=== PATIENT | female | born 1975 | race African-American/Black ===

== ENCOUNTER 2017-07-28 19:37 | Emergency (ER) | payer SELFPAY ==
[2017-07-28 19:43] VITALS: BP 128/71; BMI 33.7
[2017-07-28 21:06] LABS: BLOOD UREA NITROGEN 12 mg/dL (7-18); CALCIUM 9.4 mg/dL (8.5-10.1); CARBON DIOXIDE 27.8 mmol/L (21-32); CHLORIDE 100 mmol/L (98-107); CREATININE 1.01 mg/dL (0.55-1.02); SODIUM 136 mmol/L (136-145); TROPONIN I < 0.02 ng/mL (0-1.5); eGFR BLACK RACES > 60 (>60); eGFR NON BLACK RACES > 60 (>60)
[2017-07-28 21:10] LABS: ALANINE AMINOTRANSFERASE 15 Units/L (12-78); ALBUMIN 3.5 g/dL (3.4-5.0); ALKALINE PHOSPHATASE 46 Units/L (46-116); ASPARTATE AMINO TRANSFERASE 23 Units/L (15-37); CREATINE KINASE 102 Units/L (26-192); CREATINE KINASE MB < 1.0 ng/mL (0-4.0); MAGNESIUM 1.9 mg/dL (1.7-2.9); PHOSPHORUS 3.2 mg/dL (2.6-4.7); TOTAL PROTEIN 8.2 g/dL (6.4-8.2)
[2017-07-28 21:16] LABS: BASOPHILS % (AUTO) 0.3 % (0.2-1.0); EOSINOPHILS % (AUTO) 0.1 % (0.9-2.9); LYMPHOCYTES # (AUTO) 1.4 X10^3/uL (1.3-2.9); LYMPHOCYTES % (AUTO) 16.2 % (21.0-51.0); MEAN CORPUSCULAR HEMOGLOBIN 27.5 pg (27.0-34.0); MEAN CORPUSCULAR HGB CONC 33.2 g/dL (33.0-35.0); MEAN CORPUSCULAR VOLUME 82.7 fL (80.0-100.0); MEAN PLATELET VOLUME 9.3 fL (7.4-11.0); MONOCYTES # (AUTO) 0.6 x10^3/uL (0.3-0.8); MONOCYTES % (AUTO) 6.8 % (0.0-13.0); NEUTROPHILS # (AUTO) 6.6 x10^3/uL (2.2-4.8); NEUTROPHILS % (AUTO) 76.6 % (42.0-75.0); PLATELET COUNT 113 X10^3/uL (150.0-450.0); RED BLOOD COUNT 4.72 X10^6/uL (3.5-5.4); RED CELL DISTRIBUTION WIDTH 15.4 % (11.6-16.5)
[2017-07-28 21:34] LABS: HYPOCHROMASIA SLIGHT; PLATELET MORPHOLOGY COMMENT NORMAL (NORMAL)
[2017-07-28 21:35] LABS: WHITE BLOOD COUNT 8.6 X10^3/uL (3.6-10.0)
--- NOTE | 2017-07-28 21:47 | RAD ---
HISTORY: Chest pain. Study: Portable chest. Comparison: None. Findings: The trachea is midline. The cardiac silhouette is unremarkable. The lungs are clear without focal i nfiltrate or effusion. The bony thorax is unremarkable. IMPRESSION: No acute cardiopulmonary disease. Reported By:
--- NOTE | 2017-07-28 22:12 | DR.GENAD ---
HPI - Complaint/Symptoms Chief Complaint Doctors Comments: Patient denies history of cardiac or pulmonary disease Chief Complaint:: PT STATES HER CHEST AND STOMACH BEGAN HURTING LAST NIGHT. Self Treatment fo Chief Complaint: PT STATES SHE TOOK SOME HEARTBURN MEDS THAT HAVE NOT HELPED - Source History Provided: Patient - Mode of Arrival Mode of Arrival: Ambulatory - Timing Onset of Chief Complaint: 07/27/17 PMH - PMH Past Medical History: No Past Surgical History: Yes Surgical History: Cholecystectomy, SAP GATHERER Surgery - Family History History of Family Medical Conditions: Yes Family Medical History: Diabetes Mellitus, Cancer, Coronary Artery Disease, Hypertension - infectious screening Have you traveled outside the country in the last 6 months?: No ROS - Review of Systems Constitutional: No Symptoms Reported Eyes: No Symptoms Reported ENTM: No Symptoms Reported Respiratoy: No Symptoms Reported Cardiovascular: Other (chest wall pain) Gastrointestinal/Abdominal: No Symptoms Reported, See HPI Genitourinary: No Symptoms Reported Neurological: No Symptoms Reported Musculoskeletal: No Symptoms Reported, See HPI Integumentary: No Symptoms Reported Hematologic/Lymphatic: No Symptoms Reported Endocrine: No Symptoms Reported, See HPI Psychiatric: No Symptoms Reported, Anxiety All Other Systems: Reviewed and Negative PE - Vital Signs Vitals: Temperature 99.8 F Pulse Rate 109 Respiratory Rate 18 Blood Pressure 128/71 O2 Sat by Pulse Oximetry 100 - General Limitations: No Limitations General Appearance: Alert, In No Apparent Distress - Head Head Exam: Normal Inspection, Atraumatic - Eyes Eye exam: Normal Appearance, PERRL, EOMI - ENT ENT Exam: Normal Exam External Ear Exam: Normal External Inspection TM/Canal Exam: Bilateral Normal Nose Exam: Normal Nose Exam Mouth Exam: Normal Inspection Throat Exam: Normal Inspection - Neck Neck Exam: Normal Inspection, Full ROM - Chest Chest Inspection: Normal Inspection, Tenderness (generalized to palpation) - Respiratory Respiratory Exam: Normal Lung Sounds Bilat Respiratory Exam: Bilateral Clear to Auscultation - Cardiovascular Cardiovascular Exam: Regular Rate, Normal Rhythm - Abdominal Exam Abdominal Exam: Normal Inspection, Normal Bowel Sounds Abdominal Tenderness: negative: RUQ, RLQ, LUQ, LLQ, Epigastrium, Suprapubic, Diffuse, Mild, Moderate, Severe, Other - Extremities Extremities Exam: Normal Inspection, Full ROM - Back Back Exam: Normal Inspection, Full ROM - Neurologic Neurological Exam: Alert, Oriented X3, CN II-XII Intact - Psychiatric Psychiatric Exam: Normal Affect, Normal Mood - Skin Skin Exam: Warm (psoriatic), Dry ROR - Labs Reviewed Result Diagrams: 07/28/17 20:35 07/28/17 20:35 Laboratory: WBC 8.6 X10^3/uL (3.6-10.0) 07/28/17 20:35 RBC 4.72 X10^6/uL (3.5-5.4) 07/28/17 20:35 Hgb 13.0 g/dL (12.0-16.0) 07/28/17 20:35 Hct 39.0 % (36.0-47.0) 07/28/17 20:35 MCV 82.7 fL (80.0-100.0) 07/28/17 20:35 MCH 27.5 pg (27.0-34.0) 07/28/17 20:35 MCHC 33.2 g/dL (33.0-35.0) 07/28/17 20:35 RDW 15.4 % (11.6-16.5) 07/28/17 20:35 Plt Count 113 X10^3/uL (150.0-450.0) L 07/28/17 20:35 Plt Count Comment Decreased (ADEQUATE) A 07/28/17 20:35 MPV 9.3 fL (7.4-11.0) 07/28/17 20:35 Neut % 76.6 % (42.0-75.0) H 07/28/17 20:35 Lymph % 16.2 % (21.0-51.0) L 07/28/17 20:35 [place] % 6.8 % (0.0-13.0) 07/28/17 20:35 Eos % 0.1 % (0.9-2.9) L 07/28/17 20:35 Baso % 0.3 % (0.2-1.0) 07/28/17 20:35 Neut # 6.6 x10^3/uL (2.2-4.8) H 07/28/17 20:35 Lymph # 1.4 X10^3/uL (1.3-2.9) 07/28/17 20:35 [place] # 0.6 x10^3/uL (0.3-0.8) 07/28/17 20:35 Eos # 0.0 x10^3/uL (0.0-0.2) 07/28/17 20:35 Baso # 0.0 X10^3/uL (0.0-0.1) 07/28/17 20:35 Absolute Nucleated RBC 0.1 /100WBC 07/28/17 20:35 Plt Clumps, EDTA Few 07/28/17 20:35 Plt Morphology Comment Normal (NORMAL) 07/28/17 20:35 RBC Morphology Abnormal (NORMAL) A 07/28/17 20:35 Hypochromasia Slight A 07/28/17 20:35 INR Target Range - 07/28/17 20:35 INR 1.07 (0.8-1.3) 07/28/17 20:35 PTT 31.5 SECONDS (22.9-36.5) 07/28/17 20:35 PTT Comment - 07/28/17 20:35 Sodium 136 mmol/L (136-145) 07/28/17 20:35 Corrected Sodium TNP 07/28/17 20:35 Potassium 3.6 mmol/L (3.5-5.1) 07/28/17 20:35 Chloride 100 mmol/L (98-107) 07/28/17 20:35 Carbon Dioxide 27.8 mmol/L (21-32) 07/28/17 20:35 BUN 12 mg/dL (7-18) 07/28/17 20:35 Creatinine 1.01 mg/dL (0.55-1.02) 07/28/17 20:35 Est GFR (MDRD) Af Amer > 60 (>60) 07/28/17 20:35 Est GFR (MDRD) Non-Af > 60 (>60) 07/28/17 20:35 Glucose 87 mg/dL (65-99) 07/28/17 20:35 Calcium 9.4 mg/dL (8.5-10.1) 07/28/17 20:35 Corrected Calcium TNP 07/28/17 20:35 Phosphorus 3.2 mg/dL (2.6-4.7) 07/28/17 20:35 Magnesium 1.9 mg/dL (1.7-2.9) 07/28/17 20:35 Total Bilirubin 1.40 mg/dL (0.2-1.0) H 07/28/17 20:35 AST 23 Units/L (15-37) 07/28/17 20:35 ALT 15 Units/L (12-78) 07/28/17 20:35 Alkaline Phosphatase 46 Units/L (46-116) 07/28/17 20:35 Creatine Kinase 102 Units/L (26-192) 07/28/17 20:35 CK-MB (CK-2) < 1.0 ng/mL (0-4.0) 07/28/17 20:35 CK/CKMB % Calc 1.0 % (<4) 07/28/17 20:35 Troponin I < 0.02 ng/mL (0-1.5) 07/28/17 20:35 Total Protein 8.2 g/dL (6.4-8.2) 07/28/17 20:35 Albumin 3.5 g/dL (3.4-5.0) 07/28/17 20:35 Globulin 4.7 g/dL (2.5-4.5) H 07/28/17 20:35 Albumin/Globulin Ratio 0.7 Ratio (1.1-2.1) L 07/28/17 20:35 - XRAY XRAY Interpreted by: Radiologist (chest: No acute cardiopulmonary disease) - Diagnosis Discharge Problem: Costochondritis, Psoriasis - Discharge Plan Condition: Stable - Follow ups/Referrals Follow ups/Referrals: KSENIA BOLANOS [Primary Care Provider] - 3 days - Instructions
[2017-07-29] MEDS ORDERED: BENTYL CAP 10 MG PO ONE (22:11)
== END 2017-07-28 22:36 | disposition home or self-care (01) ==
LOC: ER 19:53
DX: M94.0 Chondrocostal junction syndrome [Tietze] (principal); L40.8 Other psoriasis
CPT/HCPCS: 36415; 71010; 80053; 82550; 82553; 83735; 84100; 84484; 85025; 85610; 85730; 93005; 93010; 99283; A4222

== ENCOUNTER 2021-09-05 12:42 | Observation (INO) ==
--- NOTE | 2021-09-05 13:42 | ED.ABDFE ---
HPI Time Seen Time Seen by Provider: 09/05/21 13:24 PCP Primary Care Physician: CICI OBRIEN HPI Comment HPI Comment: PATIENT IS 46YR OLD FEMALE IN ER WITH SWELLING AND PAIN IN LEFT UPPER ABDOMINAL TIMES 10 DAYS. EVALUATED FEW TIMES AND GIVEN ANTIBIOTICS. AREA IS SWOLLEN AND TENSE AND WARM. NO DRAINAGE. DENIES FEVER. Complaint Doctors Chief Complaint Comments: LEFT UPPER ABDOMINAL SWELLING AND PAIN TIMES 10DAYS. Chief Complaint:: PT REPORTS THAT 10 DAYS AGO SHE NOTED A SWOLLEN AREA TO HER LEFT UPPER ABD, PT C/O PAIN AND THAT SHE HAS BEEN TO ER TWICE IN [place] ( 09/03/21) WAS THE LAST TIME PT WAS PRESCIBED ABX THE FIRST VISIT AND THEY CAUSED HER NAUSEA, SO PT STOPPED THIS MED ( ? NAME) ON HER SECOND VISIT TO THE ER PT WAS PLACED ON CIPROFLOXIN THAT SHE STARTED ON 09/03/21 . PT WENT TO HER PCP ON 09/04/20 AND RECIEVED A ROCEHIN IM INJECTION AND ANOTHER ROCEPHIN INJECTION THIS AM PT STATES " MY DOCTOR TOLD ME THERE WAS NO WHERE THAT SHE COULD SEE THAT SHE COULD CUT AND DRAIN " PT STATES " NO RADIOLOGY TEST PERFORMED WHILE AT [place] GENERAL TIMES 2 ,BR Self Treatment fo Chief Complaint: TYLENOL PO COVID-19 Coronavirus risk:travel/contact w/high risk person: No Has patient experienced Coronavirus symptoms: No Reviewed Nurses Notes Review: Yes Source History Provided: Patient Mode of arrival Mode of Arrival: Ambulatory Timing Onset of Chief Complaint: 08/27/21 Came on: Suddenly Duration Since Onset: Constant Duration: Days Location Location: [place] Severity Severity: Moderate Quality Quality: Sharp (AND THROBBING.) Context History of: None Modifying factors Worsening Factors: Exertion Improving Factors: Lying Still Associated signs and symptoms Associated Signs and Symptoms: None PMH PMH Past Medical History: No Past Surgical History: No Surgical History: Cholecystectomy and POLL WATCHER Surgery Family History History of Family Medical Conditions: No Family Medical History: Diabetes Mellitus, Cancer, Coronary Artery Disease and Hypertension Social History Does patient currently use any type of tobacco product: No Have you used tobacco products in the last 12 months: No Type of Tobacco Use: None Does any household member use tobacco: No Alcohol Use: None Do you use any recreational Drugs:: No Lives With: Family Lives Where: Home Travel Risk Coronavirus risk:travel/contact w/high risk person: No Has patient experienced Coronavirus symptoms: No Infectious screening In the last 2 months have you had wt loss of >10#?: NO Have you had fever, night sweats or hemotysis?: No Have you traveled outside the country in the last 6 months?: No Isolation: Standard ROS Review of Systems Constitutional: No Symptoms Reported and See HPI; negative Fever, Weakness and Fatigue Eyes: No Symptoms Reported and See HPI ENTM: No Symptoms Reported and See HPI; negative Nose Discharge and Nose Congestion Respiratoy: No Symptoms Reported and See HPI; negative Moist Cough, Short of Breath and Wheezing Cardiovascular: No Symptoms Reported and See HPI; negative Chest Pain Gastrointestinal/Abdominal: No Symptoms Reported, See HPI and Abdominal Pain (SWELLING AND PAIN LEFT UPPER ABDOMEN.); negative Diarrhea and Vomiting Genitourinary: No Symptoms Reported; negative Dysuria, Frequency and Hematuria Neurological: No Symptoms Reported and See HPI; negative Headache, Weakness and Dizziness Musculoskeletal: No Symptoms Reported and See HPI; negative Back Pain and Muscle Pain Integumentary: No Symptoms Reported, See HPI and Rash (PSORIASIS, GENERALIZED.); negative Change in Color and Juandice Hematologic/Lymphatic: No Symptoms Reported and See HPI; negative Easy Bruising Endocrine: No Symptoms Reported; negative Increased Thirst and Increased Urine Psychiatric: No Symptoms Reported and See HPI All Other Systems: Reviewed and Negative PE Vital Signs Vitals: Temperature 98.7 F Pulse Rate [Right Brachial] 95 Pulse Rate 88 Respiratory Rate 17 Blood Pressure [Right Arm] 119/72 Blood Pressure 123/73 O2 Sat by Pulse Oximetry 97 General Limitations: No Limitations General Appearance: Alert and In No Apparent Distress Head Head Exam: Normal Inspection Eyes Eye exam: Normal Appearance; negative Scleral Icterus and Conjunctival Injection ENT ENT Exam: Normal Exam; negative Normal Oropharynx, Normal External Ear Exam and TM's Normal Bilaterally Neck Neck Exam: Normal Inspection and Trachea Midline; negative Tenderness and Lymphadenopathy Chest Chest Inspection: Normal Inspection and Symmetric Chest Wall Rise; negative Tenderness Respiratory Respiratory Exam: Normal Lung Sounds Bilat; negative Accessory Muscle Use, Chest Wall Tenderness and Respiratory Distress Respiratory Exam: Bilateral: Clear to Auscultation Cardiovascular Cardiovascular Exam: Regular Rate, Normal Rhythm and Normal Heart Sounds; negative Systolic Murmur and Diastolic Murmur Abdominal Exam Abdominal Exam: Normal Bowel Sounds, Soft and Tenderness Abdominal Tenderness: LUQ and Moderate Rectal Rectal Exam: Deferred Back Back Exam: Normal Inspection; negative (R) CVA Tenderness and (L) CVA Tenderness Extremeties Extremities Exam: Normal Inspection Neurologic Neurological Exam: Alert and Oriented X3 Psychiatric Psychiatric Exam: Normal Affect and Normal Mood Skin Skin Exam: Warm, Dry and Intact MDM Differential Diagnosis Differential Diagnosis- Considerations may include:: Other (comments) (LEFT UPPER ABDOMINAL WALL ABSCESS/HEMATOMA, LEFT LOWER CHEST WALL HEMATOMA. ) COURSE Treatment Treatment: SEE ORDERS. LEIFN 3.375GM IVPB IN ER. CT INDICATED COMPLEX LOCULATED HEMATOMA LUQ ABDAND LOWER LEFT CHEST.WILL ADMIT FOR FURTHER MANAGEMENT. REPORTS AND LABS DISCUSSED WITH PATIENT AND UNDERSTANDS. Education/Counseling Education/Counseling: Patient Educated On: Diagnosis ROR Labs Reviewed Laboratory Results Reviewed?: Yes Result Diagrams: 09/06/21 06:18 09/06/21 06:18 Laboratory: WBC 5.8 X10^3/uL (3.6-10.0) 09/05/21 14:00 RBC 3.84 X10^6/uL (3.5-5.4) 09/05/21 14:00 Hgb 10.4 g/dL (12.0-16.0) L 09/05/21 14:00 Hct 31.3 % (36.0-47.0) L 09/05/21 14:00 MCV 81.4 fL (80.0-100.0) 09/05/21 14:00 MCH 27.2 pg (27.0-34.0) 09/05/21 14:00 MCHC 33.4 g/dL (33.0-35.0) 09/05/21 14:00 RDW 15.6 % (11.6-16.5) 09/05/21 14:00 Plt Count 210 X10^3/uL (150.0-450.0) 09/05/21 14:00 MPV 8.6 fL (7.4-11.0) 09/05/21 14:00 Neut % (Auto) 68.3 % (42.0-75.0) 09/05/21 14:00 Lymph % (Auto) 20.0 % (21.0-51.0) L 09/05/21 14:00 [place] % (Auto) 10.2 % (0.0-13.0) 09/05/21 14:00 Eos % (Auto) 0.9 % (0.9-2.9) 09/05/21 14:00 Baso % (Auto) 0.6 % (0.2-1.0) 09/05/21 14:00 Neut # (Auto) 3.9 x10^3/uL (2.2-4.8) 09/05/21 14:00 Lymph # (Auto) 1.2 X10^3/uL (1.3-2.9) L 09/05/21 14:00 [place] # (Auto) 0.6 x10^3/uL (0.3-0.8) 09/05/21 14:00 Eos # (Auto) 0.1 x10^3/uL (0.0-0.2) 09/05/21 14:00 Baso # (Auto) 0.0 X10^3/uL (0.0-0.1) 09/05/21 14:00 Absolute Nucleated RBC 0.1 /100WBC 09/05/21 14:00 Sodium 139 mmol/L (136-145) 09/05/21 14:00 Corrected Sodium TNP 09/05/21 14:00 Potassium 3.4 mmol/L (3.5-5.1) L 09/05/21 14:00 Chloride 102 mmol/L (98-107) 09/05/21 14:00 Carbon Dioxide 30.6 mmol/L (21-32) 09/05/21 14:00 BUN 12 mg/dL (7-18) 09/05/21 14:00 Creatinine 0.80 mg/dL (0.55-1.02) 09/05/21 14:00 Est GFR (MDRD) Af Amer > 60 (>60) 09/05/21 14:00 Est GFR (MDRD) Non-Af > 60 (>60) 09/05/21 14:00 Glucose 93 mg/dL (65-99) 09/05/21 14:00 Calcium 9.5 mg/dL (8.5-10.1) 09/05/21 14:00 Corrected Calcium 10.6 mg/dL (8.5-10.1) H 09/05/21 14:00 Total Bilirubin 0.40 mg/dL (0.2-1.0) 09/05/21 14:00 AST 33 Units/L (15-37) 09/05/21 14:00 ALT 25 Units/L (12-78) 09/05/21 14:00 Alkaline Phosphatase 81 Units/L (46-116) 09/05/21 14:00 Total Protein 7.5 g/dL (6.4-8.2) 09/05/21 14:00 Albumin 2.6 g/dL (3.4-5.0) L 09/05/21 14:00 Globulin 4.9 g/dL (2.5-4.5) H 09/05/21 14:00 Albumin/Globulin Ratio 0.5 Ratio (1.1-2.1) L 09/05/21 14:00 SARS-CoV-2 (PCR) Negative (NEGATIVE) 09/05/21 18:04 Influenza Type A (PCR) Negative (NEGATIVE) 09/05/21 18:04 Influenza Type B (PCR) Negative (NEGATIVE) 09/05/21 18:04 RSV (PCR) Negative (NEGATIVE) 09/05/21 18:04 XRAY XRAY Interpreted by: Radiologist (REPORT NOTED AND DISCUSSED WITH PATIENT.) and Self Opioid Opioid Risk Tool Age (Juan box if 16-45): No History of Preadolescent Sexual Abuse: No Total: 0 Total Score Risk Category: Low Risk Copyright: Enrique GRULLON predicting aberrant behaviors Diagnosis Discharge Problem: Abdominal wall hematoma, Hematoma of left chest wall Instructions Forms: Precautions for COVID19 [facility] Patient Portal Social Distancing
[2021-09-05 14:24] LABS: BASOPHILS % (AUTO) 0.6 % (0.2-1.0); EOSINOPHILS # (AUTO) 0.1 x10^3/uL (0.0-0.2); EOSINOPHILS % (AUTO) 0.9 % (0.9-2.9); HEMATOCRIT 31.3 % (36.0-47.0); HEMOGLOBIN 10.4 g/dL (12.0-16.0); LYMPHOCYTES # (AUTO) 1.2 X10^3/uL (1.3-2.9); MEAN CORPUSCULAR HEMOGLOBIN 27.2 pg (27.0-34.0); MEAN CORPUSCULAR HGB CONC 33.4 g/dL (33.0-35.0); MEAN CORPUSCULAR VOLUME 81.4 fL (80.0-100.0); MEAN PLATELET VOLUME 8.6 fL (7.4-11.0); MONOCYTES # (AUTO) 0.6 x10^3/uL (0.3-0.8); MONOCYTES % (AUTO) 10.2 % (0.0-13.0); NEUTROPHILS # (AUTO) 3.9 x10^3/uL (2.2-4.8); NEUTROPHILS % (AUTO) 68.3 % (42.0-75.0); PLATELET COUNT 210 X10^3/uL (150.0-450.0); RED BLOOD COUNT 3.84 X10^6/uL (3.5-5.4); RED CELL DISTRIBUTION WIDTH 15.6 % (11.6-16.5); WHITE BLOOD COUNT 5.8 X10^3/uL (3.6-10.0)
[2021-09-05 14:34] LABS: ALANINE AMINOTRANSFERASE 25 Units/L (12-78); ALBUMIN 2.6 g/dL (3.4-5.0); ALKALINE PHOSPHATASE 81 Units/L (46-116); ASPARTATE AMINO TRANSFERASE 33 Units/L (15-37); BLOOD UREA NITROGEN 12 mg/dL (7-18); CALCIUM 9.5 mg/dL (8.5-10.1); CARBON DIOXIDE 30.6 mmol/L (21-32); CHLORIDE 102 mmol/L (98-107); COR CA(FOR HYPOALB) 10.6 mg/dL (8.5-10.1); SODIUM 139 mmol/L (136-145); TOTAL PROTEIN 7.5 g/dL (6.4-8.2); eGFR NON BLACK RACES > 60 (>60)
[2021-09-05] MEDS ORDERED: NS 100 ML IV 100 ML ONE (15:48)
--- NOTE | 2021-09-05 17:29 | CT ---
EXAM: CT ABDOMEN AND PELVIS WITHOUT INTRAVENOUS CONTRASTHISTORY: 10 days ago she noted a swollen area in her left upper abdomen. Pain.TECHNIQUE: Spiral axial CT images are obtained through the abdomen and pelvis without the administration of intravenous contrast. Additional coronal and sagittal reformatted images are reconstructed.DOSIMETRY: Total DLP 884.9 mGycm; CTDI 17.8 mGyCOMPARISON: None available.FINDINGS:CHEST AND ABDOMEN/PELVIC WALL: There is an approximately 10.5 cm transverse by 3.8 cm thick by 7.7 cm CC complex multilocular hyperdense fluid collection within the left lateral lower chest/upper abdominal wall, reminiscent of an acute subcutaneous hematoma. There is associated cutaneous thickening and subcutaneous parenchymal stranding around the aforementioned fluid collection which could represent posttraumatic contusion and/or cellulitis in the appropriate clinical setting. Clinical correlation is advised.GASTROINTESTINAL TRACT: There is an approximately 5.3 cm transverse by 5.3 cm AP by 4.5 cm CC hiatal hernia containing collapsed proximal stomach. There is no evidence for bowel herniation, bowel obstruction, colitis or diverticulitis. A normal-appearing appendix is seen.GENITOURINARY SYSTEM: The kidneys are unremarkable. There is no ureteral calculus or stigmata of obstructive uropathy. The urinary bladder is grossly unremarkable for a non-dedicated exam.REPRODUCTIVE SYSTEM: There is a markedly enlarged (approximately 13.3 cm cc by 9.3 cm AP by 11.7 cm transverse) fibroid uterus containing multiple calcified and noncalcified uterine fibroids; largest discernible lesion measures approximately 7.8 cm seen in the left body of the uterus. Correlation with MRI may be beneficial for further characterization. The adnexa appear grossly unremarkable for a CT scan. Consider follow-up dedicated imaging as clinically warranted.CT ABDOMEN: Status post cholecystectomy. Aortoiliac atherosclerotic disease, without aneurysm formation. The liver, spleen, pancreas, adrenal glands, and inferior vena cava are within normal limits for a noncontrast CT scan. There is no intra-abdominal or retroperitoneal lymphadenopathy, free fluid, or free air seen. No abdominal herniation is noted.CT PELVIS: The visualized bony structures are within normal limits. No pelvic sidewall or inguinal lymphadenopathy is seen. No inguinal herniation is noted. No free fluid or free air is seen. Subcutaneous clustered air bubbles and interstitial edema/hemorrhagic changes seen in the left buttock consistent with iatrogenic change from recent injection. Clinical correlation is advised.LUNG BASES: The lung bases are clear.IMPRESSION:1. Approximately 10.5 cm transverse by 3.8 cm thick by 7.7 cm CC complex multilocular hyperdense fluid collection within the left lateral lower chest/upper abdominal wall, reminiscent of an acute subcutaneous hematoma.2. Associated cutaneous thickening and subcutaneous parenchymal stranding around the aforementioned fluid collection which could represent posttraumatic contusion and/or cellulitis in the appropriate clinical setting. Clinical correlation is advised.3. No gross acute intra-abdominal/intrapelvic abnormality seen.4. No evidence for renal stone disease or obstructive uropathy.5. No evidence for acute appendicitis, bowel herniation/obstruction, colitis or diverticulitis seen.6. Approximately 5.3 cm transverse by 5.3 cm AP by 4.5 cm CC hiatal hernia containing collapsed proximal stomach.7. Markedly enlarged (approximately 13.3 cm cc by 9.3 cm AP by 11.7 cm transverse) fibroid uterus containing multiple calcified and noncalcified uterine fibroids; largest discernible lesion measures approximately 7.8 cm seen in the left body of the uterus. Correlation with MRI may be beneficial for further characterization.8. Subcutaneous clustered air bubbles and interstitial edema/hemorrhagic changes seen in the left buttock consistent with iatrogenic change from recent injection. Clinical correlation is advised.9. No free fluid, free air or lymphadenopathy seen.Electronically signed by: Korey Sage (Sep 05, 2021 17:27:33)
[2021-09-05] MEDS ORDERED: ZOSYN VIAL 3.375 GRAMS 3.375 G in NS 100 ML IV + SPIKE MINIBAG* 100 ML IV ONE (18:31)
[2021-09-05] MEDS ORDERED: NS 100 ML IV + SPIKE MINIBAG* 100 ML IV ONE (18:49)
[2021-09-05] MEDS ORDERED: ZOSYN VIAL 3.375 GRAMS IV ONE (18:49)
[2021-09-05] MEDS ORDERED: NS 1000 ML 1,000 ML ONE (18:52)
[2021-09-05] MEDS: NS 1000 ML 1,000 ML IV SCH (19:00)
[2021-09-05] MEDS ORDERED: DIPRIVAN VIAL ONE (19:08)
[2021-09-05] MEDS ORDERED: XYLOCAINE 2 % (PLAIN) ONE (19:08)
[2021-09-05] MEDS ORDERED: VERSED ONE (19:08)
[2021-09-05] MEDS ORDERED: ZOFRAN INJ 4 MG VIAL IVP PRN (19:11)
[2021-09-05] MEDS: ZOSYN VIAL 3.375 GRAMS 3.375 G in NS 100 ML IV + SPIKE MINIBAG* 100 ML IV SCH (21:12)
[2021-09-05 22:47] VITALS: BMI 33.6
--- NOTE | 2021-09-05 23:44 | DR.H&P ---
H&P History & Physical for Day of: H&P Date: 09/05/21 Chief Complaint Chief Complaint: Mass Effect to the left chest wall Allergies Allergies Allergy/AdvReac Type Severity Reaction Status Date / Time No Known Drug Allergies Allergy Verified 09/05/21 12:43 History of Present Illness History of Present Illness: 46 year old female with history of psoriasis who has had10 days of swelling and tenderness over the left chest wall. She denies trauma. She denies fever but has noted " fever " of the swollen area.you're a rookie with his sunburn is what you are in the store let me know Past Medical History Additional Medical History: psoriasis trust me in 5 minutes Past Surgical History Surgical History: Cholecystectomy Family History Family Medical History: Coronary Artery Disease and Hypertension Social History Does patient currently use any type of tobacco product: No Have you used tobacco products in the last 12 months: No Type of Tobacco Use: None Does any household member use tobacco: No Alcohol Use: None Drug Use: None Medications Home Medications: No Known Drug Allergies Allergy (Verified 09/05/21 12:43) CONTINUE taking the following medications ciprofloxacin HCl 500 mg PO BID 09/05/21 [History] mycophenolate mofetil 500 mg PO DAILY 09/05/21 [History] tramadol 50 mg PO PRN PRN 09/05/21 [History] Labs Result Diagrams: 09/05/21 14:00 09/05/21 14:00 Labs: Laboratory WBC 5.8 X10^3/uL (3.6-10.0) 09/05/21 14:00 RBC 3.84 X10^6/uL (3.5-5.4) 09/05/21 14:00 Hgb 10.4 g/dL (12.0-16.0) L 09/05/21 14:00 Hct 31.3 % (36.0-47.0) L 09/05/21 14:00 MCV 81.4 fL (80.0-100.0) 09/05/21 14:00 MCH 27.2 pg (27.0-34.0) 09/05/21 14:00 MCHC 33.4 g/dL (33.0-35.0) 09/05/21 14:00 RDW 15.6 % (11.6-16.5) 09/05/21 14:00 Plt Count 210 X10^3/uL (150.0-450.0) 09/05/21 14:00 MPV 8.6 fL (7.4-11.0) 09/05/21 14:00 Neut % (Auto) 68.3 % (42.0-75.0) 09/05/21 14:00 Lymph % (Auto) 20.0 % (21.0-51.0) L 09/05/21 14:00 [place] % (Auto) 10.2 % (0.0-13.0) 09/05/21 14:00 Eos % (Auto) 0.9 % (0.9-2.9) 09/05/21 14:00 Baso % (Auto) 0.6 % (0.2-1.0) 09/05/21 14:00 Neut # (Auto) 3.9 x10^3/uL (2.2-4.8) 09/05/21 14:00 Lymph # (Auto) 1.2 X10^3/uL (1.3-2.9) L 09/05/21 14:00 [place] # (Auto) 0.6 x10^3/uL (0.3-0.8) 09/05/21 14:00 Eos # (Auto) 0.1 x10^3/uL (0.0-0.2) 09/05/21 14:00 Baso # (Auto) 0.0 X10^3/uL (0.0-0.1) 09/05/21 14:00 Absolute Nucleated RBC 0.1 /100WBC 09/05/21 14:00 Sodium 139 mmol/L (136-145) 09/05/21 14:00 Corrected Sodium TNP 09/05/21 14:00 Potassium 3.4 mmol/L (3.5-5.1) L 09/05/21 14:00 Chloride 102 mmol/L (98-107) 09/05/21 14:00 Carbon Dioxide 30.6 mmol/L (21-32) 09/05/21 14:00 BUN 12 mg/dL (7-18) 09/05/21 14:00 Creatinine 0.80 mg/dL (0.55-1.02) 09/05/21 14:00 Est GFR (MDRD) Af Amer > 60 (>60) 09/05/21 14:00 Est GFR (MDRD) Non-Af > 60 (>60) 09/05/21 14:00 Glucose 93 mg/dL (65-99) 09/05/21 14:00 Calcium 9.5 mg/dL (8.5-10.1) 09/05/21 14:00 Corrected Calcium 10.6 mg/dL (8.5-10.1) H 09/05/21 14:00 Total Bilirubin 0.40 mg/dL (0.2-1.0) 09/05/21 14:00 AST 33 Units/L (15-37) 09/05/21 14:00 ALT 25 Units/L (12-78) 09/05/21 14:00 Alkaline Phosphatase 81 Units/L (46-116) 09/05/21 14:00 Total Protein 7.5 g/dL (6.4-8.2) 09/05/21 14:00 Albumin 2.6 g/dL (3.4-5.0) L 09/05/21 14:00 Globulin 4.9 g/dL (2.5-4.5) H 09/05/21 14:00 Albumin/Globulin Ratio 0.5 Ratio (1.1-2.1) L 09/05/21 14:00 SARS-CoV-2 (PCR) Negative (NEGATIVE) 09/05/21 18:04 Influenza Type A (PCR) Negative (NEGATIVE) 09/05/21 18:04 Influenza Type B (PCR) Negative (NEGATIVE) 09/05/21 18:04 RSV (PCR) Negative (NEGATIVE) 09/05/21 18:04 CT scan shows Loculated fluid collection of the left chest wall. Review of Systems Constitutional: Fever Eyes: denies No Symptoms Reported, See HPI, Pain, Vision Change, Conjunctivae Inflammation, Eyelid Inflammation, Redness and Other ENT: denies No Symptoms Reported, See HPI, Ear Pain, Ear Discharge, Nose Pain, Nose Discharge, Nose Congestion, Mouth Pain, Mouth Swelling, Throat Pain, Throat Swelling and Other Respiratory: denies No Symptoms Reported, See HPI, Cough, Dry, Shortness of Breath, Hemoptysis, SOB with Excertion, Pleuritic Pain, Sputum, Wheezing and Other Cardiovascular: denies No Symptoms Reported, Chest Pain, See HPI, Palpitations, Orthopnea, Paroxysmal Noc. Dyspnea, Edema, Light Headedness and Other Gastrointestinal: denies No Symptoms Reported, See HPI, Nausea, Vomiting, Abdominal Pain, Diarrhea, Constipation, Melena, Hematochezia and Other Genitourinary: denies No Symptoms Reported, See HPI, Dysuria, Frequency, Incontinence, Hematuria, Retention and Other Musculoskeletal: denies No Symptoms Reported, See HPI, Shoulder Pain, Arm Pain, Back Pain, Hand Pain, Leg Pain, Foot Pain, Neck Pain and Other Skin: Other (psoriasis of the skin. Mass Effect to the left chest wall. ) Neurological: denies No Symptoms Reported, See HPI, Weakness, Numbness, Incoordination, Change in Speech, Confusion, Seizures and Other Physical Exam Vital Signs: Temperature 99.2 F Pulse Rate [Right Brachial] 94 Pulse Rate 88 Respiratory Rate 18 Blood Pressure [Right Arm] 124/63 Blood Pressure 123/73 O2 Sat by Pulse Oximetry 96 Oriented: Normal, Time, Person and Place Eyes: Normal Ear: Normal Nose: Normal Throat: Normal Respiratory: Clear Throughout Cardiovascular: Normal : Normal Auscultation: Bowel Sounds: Normal Palpation: Normal Tenderness: Normal Skin: Tender (tender warm fluid collection to the left lateral chest wall consistent with abscess. Confirmed as loculated by CT scan ) Musculoskeletal: Normal Psychiatric: Normal Mood Description: Calm Speech Pattern: Clear Assessment/Plan (1) Abscess of chest wall: Status: Acute Plan: Admit , IV antibiotics, plan incision and drainage of abscess. (2) Abdominal wall hematoma: Status: Acute Review H&P Reviewed: Yes Patient was examined?: Yes
[2021-09-06] MEDS: ZOSYN VIAL 3.375 GRAMS 3.375 G in NS 100 ML IV + SPIKE MINIBAG* 100 ML IV SCH ×3 (05:05→21:30)
[2021-09-06] MEDS: NS 1000 ML 1,000 ML IV SCH ×3 (05:05→21:15)
[2021-09-06 06:59] LABS: BASOPHILS % (AUTO) 0.7 % (0.2-1.0); EOSINOPHILS % (AUTO) 0.9 % (0.9-2.9); HEMATOCRIT 29.3 % (36.0-47.0); HEMOGLOBIN 9.8 g/dL (12.0-16.0); LYMPHOCYTES # (AUTO) 1.1 X10^3/uL (1.3-2.9); LYMPHOCYTES % (AUTO) 19.7 % (21.0-51.0); MEAN CORPUSCULAR HEMOGLOBIN 27.2 pg (27.0-34.0); MEAN CORPUSCULAR HGB CONC 33.5 g/dL (33.0-35.0); MEAN CORPUSCULAR VOLUME 81.4 fL (80.0-100.0); MEAN PLATELET VOLUME 8.9 fL (7.4-11.0); MONOCYTES # (AUTO) 0.5 x10^3/uL (0.3-0.8); MONOCYTES % (AUTO) 8.6 % (0.0-13.0); NEUTROPHILS # (AUTO) 3.7 x10^3/uL (2.2-4.8); NEUTROPHILS % (AUTO) 70.1 % (42.0-75.0); PLATELET COUNT 190 X10^3/uL (150.0-450.0); RED BLOOD COUNT 3.61 X10^6/uL (3.5-5.4); RED CELL DISTRIBUTION WIDTH 15.5 % (11.6-16.5); WHITE BLOOD COUNT 5.3 X10^3/uL (3.6-10.0)
[2021-09-06 07:49] LABS: ALANINE AMINOTRANSFERASE 22 Units/L (12-78); ALBUMIN 2.4 g/dL (3.4-5.0); ALKALINE PHOSPHATASE 68 Units/L (46-116); ASPARTATE AMINO TRANSFERASE 22 Units/L (15-37); BLOOD UREA NITROGEN 9 mg/dL (7-18); CARBON DIOXIDE 23.3 mmol/L (21-32); CHLORIDE 105 mmol/L (98-107); COR CA(FOR HYPOALB) 10.3 mg/dL (8.5-10.1); CREATININE 0.75 mg/dL (0.55-1.02); SODIUM 142 mmol/L (136-145); TOTAL PROTEIN 6.9 g/dL (6.4-8.2); eGFR NON BLACK RACES > 60 (>60)
[2021-09-06] MEDS: MOTRIN TAB 600 MG PO PRN ×2 (08:24→16:32)
[2021-09-06] MEDS ORDERED: FENTANYL VIAL INJ 100 mcg ONE (11:55)
[2021-09-06] MEDS ORDERED: MARCAINE 0.5% ONE (12:02)
[2021-09-06] MEDS ORDERED: KETALAR ONE (12:06)
[2021-09-06] MEDS ORDERED: BETADINE SOLN ONE (12:13)
--- NOTE | 2021-09-06 12:33 | OR.IMMED ---
IMMEDIATE POST-OP NOTE Immediate Post-Op Note Pre-Op Diagnosis: Abscess left chest wall Post-Op Diagnosis: same [id number] cm Procedure: Incision and drainage of left chest wall abscess Description of Procedure: see operative summary Surgeon/Battery Assembler Dry Cell: Quirino Findings: as above Specimens Removed: abscess contents , cultures obtained Estimated Blood Loss: minimal Drains: NONE Complications: none Progress Notes: wound packed, continue IV antibiotics and will pack wound daily Condition: Stable Final Diagnosis: abscess left chest wall
[2021-09-06] MEDS: MORPHINE SULFATE INJ 4 MG IVP PRN ×2 (12:53→19:45)
--- NOTE | 2021-09-06 13:46 | DR.OPNOTE ---
OP NOTE Pre-Op Diagnosis: 15x 12 x 3 cm abscess, complex , to left chest wall Post-Op Diagnosis: same Procedure Date Date Of Procedure: 09/06/21 Procedure: The patient was taken to the operating suite and placed in the Supine position. The left chest wall area was prepped and draped in sterile fashion. She was given IV sedation. Time out for the procedure obtained . 8 cc's of 0. 5% Marcaine was injected long the planned incision site of the left chest wall. This incised with a 6cm transverse incision and gross purulence evacuated . Cultures obtained . It was irrigated and packed with Kerlix and covered with a dry gauze. The patient tolerated this well. Type of Anesthesia: Local (marcaine 0. 5% ) Anesthesia Comment: plus MAC Findings: as above Specimen/Pathology: cultures obtained of abscess Urine output: none, are EBL: minimal Drains/Tubes Comment: packed with kerlix gauze Cultures: yes Complications:: none Needle/Sponge Count:: correct Disposition/Condition: Pt. tolerated procedure without difficulty. To PACU in stable condition and then to the second floor.
[2021-09-06] MEDS: PERCOCET TAB 5/325 MG PO PRN (21:30)
[2021-09-07] MEDS: PERCOCET TAB 5/325 MG PO PRN ×2 (05:20→18:25)
[2021-09-07] MEDS: ZOSYN VIAL 3.375 GRAMS 3.375 G in NS 100 ML IV + SPIKE MINIBAG* 100 ML IV SCH ×3 (05:35→21:00)
[2021-09-07] MEDS: NS 1000 ML 1,000 ML IV SCH ×3 (06:04→21:27)
[2021-09-07] MEDS: LOVENOX INJ 40 MG SYR SC SCH ×2 (09:40→09:52)
[2021-09-07] MEDS ORDERED: DILAUDID INJ IVP ONE (12:28)
[2021-09-07] MEDS ORDERED: DILAUDID INJ ONE (12:29)
--- NOTE | 2021-09-07 16:17 | NOTE.SOAP ---
Soap Note Note for Day of Date of Exam: 09/07/21 Subjective Data Subjective Data: Postoperative day two after incision and drainage of abscess to the left chest wall. Doing well. Objective Data Temperature: 97.8 F Pulse Rate: 18 Respiratory Rate: 78 Blood Pressure: 134/69 O2 Sat by Pulse Oximetry: 99 Objective Data: Wound left chest wall repacked. No significant Purulence remains. Assessment Assessment: status post incision and drainage of large left chest wall abscess. Plan Plan: Continue IV antibiotics, await sensitivities to convert to po antibiotics and hopefully discharged home with home health for daily packing.
[2021-09-08] MEDS: ZOSYN VIAL 3.375 GRAMS 3.375 G in NS 100 ML IV + SPIKE MINIBAG* 100 ML IV SCH ×2 (05:00→14:19)
[2021-09-08] MEDS: NS 1000 ML 1,000 ML IV SCH ×2 (05:41→14:19)
[2021-09-08] MEDS ORDERED: DILAUDID INJ IVP ONE (08:26)
[2021-09-08] MEDS: LOVENOX INJ 40 MG SYR SC SCH (08:33)
--- NOTE | 2021-09-08 11:43 | W.DIS.FURT ---
Summary of Discharge Discharge Summary of Date Date of Exam: 09/08/21 Admission Date Date of Admission: 09/05/21 Admission Diagnosis Patient Problems (Updated 09/05/21 @ 23:41 by Sterling Win) Abdominal wall hematoma (Acute) S30.1XXA Hematoma of left chest wall (Acute) S20.212A Hospital Course: This 46 year-old female presented with a abscess to the left anterior lateral chest wall just below the left breast. He was started on IV antibiotics and take him to the operating room where she underwent incision and drainage of this gross purulence. the wound has been packed daily and will be continues to be packed daily. Wouind culture shows methicillin-resistant staphylococcus aureus which is sensitive to Bactrim .She will be discharged home on Bactrim DS, one p o BID x seven days and Percocet 5 mg tablets one every six hours PRN pain, # 30. Home health will do the daily dressing changes. I will see her in the office in one week. I have given her a note to be out of work for the next two weeks. Vital Signs: Vital Signs (72 hours) 09/05/21 12:44 09/05/21 18:20 09/05/21 19:35 Temperature 96.6 F L 98.7 F 99.2 F Pulse Rate 88 Pulse Rate [Left Brachial] Pulse Rate [Right Brachial] 95 H 94 H Respiratory Rate 20 17 18 Blood Pressure 123/73 Blood Pressure [Left Arm] Blood Pressure [Right Arm] 119/72 124/63 O2 Sat by Pulse Oximetry 100 97 96 09/06/21 00:00 09/06/21 04:00 09/06/21 08:00 Temperature 98.7 F 98.4 F 98.4 F Pulse Rate Pulse Rate [Left Brachial] Pulse Rate [Right Brachial] 96 H 90 86 Respiratory Rate 18 18 20 Blood Pressure Blood Pressure [Left Arm] Blood Pressure [Right Arm] 98/54 108/57 108/58 O2 Sat by Pulse Oximetry 98 100 99 09/06/21 08:24 09/06/21 09:24 09/06/21 12:00 Temperature 98 F Pulse Rate Pulse Rate [Left Brachial] Pulse Rate [Right Brachial] 76 Respiratory Rate 20 20 20 Blood Pressure Blood Pressure [Left Arm] Blood Pressure [Right Arm] 124/72 O2 Sat by Pulse Oximetry 96 09/06/21 12:53 09/06/21 13:00 09/06/21 13:15 Temperature 97.9 F 97.7 F Pulse Rate Pulse Rate [Left Brachial] Pulse Rate [Right Brachial] 79 83 Respiratory Rate 20 18 18 Blood Pressure Blood Pressure [Left Arm] Blood Pressure [Right Arm] 122/71 123/69 O2 Sat by Pulse Oximetry 97 94 L 09/06/21 13:23 09/06/21 13:30 09/06/21 13:45 Temperature 97.7 F 97.8 F Pulse Rate Pulse Rate [Left Brachial] Pulse Rate [Right Brachial] 85 79 Respiratory Rate 20 20 20 Blood Pressure Blood Pressure [Left Arm] Blood Pressure [Right Arm] 124/72 124/74 O2 Sat by Pulse Oximetry 96 96 09/06/21 16:00 09/06/21 16:32 09/06/21 17:32 Temperature 97.9 F Pulse Rate Pulse Rate [Left Brachial] Pulse Rate [Right Brachial] 84 Respiratory Rate 18 20 20 Blood Pressure Blood Pressure [Left Arm] Blood Pressure [Right Arm] 113/65 O2 Sat by Pulse Oximetry 95 09/06/21 19:45 09/06/21 20:00 09/06/21 20:15 Temperature 97.8 F Pulse Rate Pulse Rate [Left Brachial] Pulse Rate [Right Brachial] 83 Respiratory Rate 18 18 18 Blood Pressure Blood Pressure [Left Arm] Blood Pressure [Right Arm] 118/66 O2 Sat by Pulse Oximetry 97 09/06/21 21:30 09/06/21 22:30 09/07/21 00:00 Temperature 97.7 F Pulse Rate Pulse Rate [Left Brachial] Pulse Rate [Right Brachial] 79 Respiratory Rate 20 20 18 Blood Pressure Blood Pressure [Left Arm] Blood Pressure [Right Arm] 113/56 O2 Sat by Pulse Oximetry 95 09/07/21 04:00 09/07/21 05:20 09/07/21 06:20 Temperature 97.6 F Pulse Rate Pulse Rate [Left Brachial] Pulse Rate [Right Brachial] 74 Respiratory Rate 18 20 20 Blood Pressure Blood Pressure [Left Arm] Blood Pressure [Right Arm] 110/55 O2 Sat by Pulse Oximetry 96 09/07/21 08:00 09/07/21 12:00 09/07/21 12:33 Temperature 97.6 F 98.4 F Pulse Rate Pulse Rate [Left Brachial] 87 Pulse Rate [Right Brachial] 78 Respiratory Rate 18 18 20 Blood Pressure Blood Pressure [Left Arm] 131/75 Blood Pressure [Right Arm] 116/69 O2 Sat by Pulse Oximetry 96 99 09/07/21 13:03 09/07/21 16:00 09/07/21 16:17 Temperature 97.8 F 97.8 F Pulse Rate 18 L Pulse Rate [Left Brachial] Pulse Rate [Right Brachial] 78 Respiratory Rate 20 18 78 H Blood Pressure 134/69 Blood Pressure [Left Arm] Blood Pressure [Right Arm] 134/69 O2 Sat by Pulse Oximetry 99 99 09/07/21 18:25 09/07/21 19:25 09/07/21 20:00 Temperature 97.9 F Pulse Rate Pulse Rate [Left Brachial] Pulse Rate [Right Brachial] 85 Respiratory Rate 20 20 18 Blood Pressure Blood Pressure [Left Arm] 127/60 Blood Pressure [Right Arm] O2 Sat by Pulse Oximetry 97 09/08/21 00:00 09/08/21 04:00 09/08/21 08:00 Temperature 98.3 F 98.4 F 98.1 F Pulse Rate Pulse Rate [Left Brachial] 88 85 Pulse Rate [Right Brachial] 73 Respiratory Rate 18 18 20 Blood Pressure Blood Pressure [Left Arm] 131/76 125/70 Blood Pressure [Right Arm] 122/79 O2 Sat by Pulse Oximetry 96 95 95 09/08/21 08:30 09/08/21 09:00 Temperature Pulse Rate Pulse Rate [Left Brachial] Pulse Rate [Right Brachial] Respiratory Rate 20 18 Blood Pressure Blood Pressure [Left Arm] Blood Pressure [Right Arm] O2 Sat by Pulse Oximetry Labs: Laboratory Last Values WBC 5.3 X10^3/uL (3.6-10.0) 09/06/21 06:18 RBC 3.61 X10^6/uL (3.5-5.4) 09/06/21 06:18 Hgb 9.8 g/dL (12.0-16.0) L 09/06/21 06:18 Hct 29.3 % (36.0-47.0) L 09/06/21 06:18 MCV 81.4 fL (80.0-100.0) 09/06/21 06:18 MCH 27.2 pg (27.0-34.0) 09/06/21 06:18 MCHC 33.5 g/dL (33.0-35.0) 09/06/21 06:18 RDW 15.5 % (11.6-16.5) 09/06/21 06:18 Plt Count 190 X10^3/uL (150.0-450.0) 09/06/21 06:18 MPV 8.9 fL (7.4-11.0) 09/06/21 06:18 Neut % (Auto) 70.1 % (42.0-75.0) 09/06/21 06:18 Lymph % (Auto) 19.7 % (21.0-51.0) L 09/06/21 06:18 [place] % (Auto) 8.6 % (0.0-13.0) 09/06/21 06:18 Eos % (Auto) 0.9 % (0.9-2.9) 09/06/21 06:18 Baso % (Auto) 0.7 % (0.2-1.0) 09/06/21 06:18 Neut # (Auto) 3.7 x10^3/uL (2.2-4.8) 09/06/21 06:18 Lymph # (Auto) 1.1 X10^3/uL (1.3-2.9) L 09/06/21 06:18 [place] # (Auto) 0.5 x10^3/uL (0.3-0.8) 09/06/21 06:18 Eos # (Auto) 0.0 x10^3/uL (0.0-0.2) 09/06/21 06:18 Baso # (Auto) 0.0 X10^3/uL (0.0-0.1) 09/06/21 06:18 Absolute Nucleated RBC 0.0 /100WBC 09/06/21 06:18 Sodium 142 mmol/L (136-145) 09/06/21 06:18 Corrected Sodium TNP 09/06/21 06:18 Potassium 3.2 mmol/L (3.5-5.1) L 09/06/21 06:18 Chloride 105 mmol/L (98-107) 09/06/21 06:18 Carbon Dioxide 23.3 mmol/L (21-32) 09/06/21 06:18 BUN 9 mg/dL (7-18) 09/06/21 06:18 Creatinine 0.75 mg/dL (0.55-1.02) 09/06/21 06:18 Est GFR (MDRD) Af Amer > 60 (>60) 09/06/21 06:18 Est GFR (MDRD) Non-Af > 60 (>60) 09/06/21 06:18 Glucose 90 mg/dL (65-99) 09/06/21 06:18 Calcium 9.0 mg/dL (8.5-10.1) 09/06/21 06:18 Corrected Calcium 10.3 mg/dL (8.5-10.1) H 09/06/21 06:18 Total Bilirubin 0.30 mg/dL (0.2-1.0) 09/06/21 06:18 AST 22 Units/L (15-37) 09/06/21 06:18 ALT 22 Units/L (12-78) 09/06/21 06:18 Alkaline Phosphatase 68 Units/L (46-116) 09/06/21 06:18 Total Protein 6.9 g/dL (6.4-8.2) 09/06/21 06:18 Albumin 2.4 g/dL (3.4-5.0) L 09/06/21 06:18 Globulin 4.5 g/dL (2.5-4.5) 09/06/21 06:18 Albumin/Globulin Ratio 0.5 Ratio (1.1-2.1) L 09/06/21 06:18 SARS-CoV-2 (PCR) Negative (NEGATIVE) 09/05/21 18:04 Influenza Type A (PCR) Negative (NEGATIVE) 09/05/21 18:04 Influenza Type B (PCR) Negative (NEGATIVE) 09/05/21 18:04 RSV (PCR) Negative (NEGATIVE) 09/05/21 18:04 Reason For Visit: LEFT ABDOMINAL WALL HEMATOMA/LEFT LOWER Discharge Date Discharge Date: 09/08/21 Discharge Diagnosis All Active Problems (Updated 09/05/21 @ 23:41 by Sterling Win) Abscess of chest wall (Acute) Costochondritis (Acute) Psoriasis (Acute) Abdominal wall hematoma (Acute) Hematoma of left chest wall (Acute) Plan of Treatment: Continue with present treatment and follow up plan. Pt is to keep follow up appointment as instructed and take medications as ordered. Discharge Medications Discharge Medications: No Known Drug Allergies Allergy (Verified 09/05/21 12:43) CONTINUE taking the following medications ciprofloxacin HCl 500 mg PO BID 09/05/21 [History] mycophenolate mofetil 500 mg PO DAILY 09/05/21 [History] tramadol 50 mg PO PRN PRN 09/05/21 [History] New Prescriptions oxycodone-acetaminophen [Percocet] 1 tab PO Q6H PRN #30 tab MDD 6 09/08/21 [Rx] sulfamethoxazole-trimethoprim [Bactrim] 1 tab PO BID #14 tab 09/08/21 [Rx] Follow up and Referral Follow Up: 1 Week Discharge Disposition Assessment: abscess left lateral chest wall Discharge Disposition: stable Discharge Condition: good Discharge Plan Discharge Plan Hospital Course: This 46 year-old female presented with a abscess to the left anterior lateral chest wall just below the left breast. He was started on IV antibiotics and take him to the operating room where she underwent incision and drainage of this gross purulence. the wound has been packed daily and will be continues to be packed daily. Wouind culture shows methicillin-resistant staphylococcus aureus which is sensitive to Bactrim .She will be discharged home on Bactrim DS, one p o BID x seven days and Percocet 5 mg tablets one every six hours PRN pain, # 30. Home health will do the daily dressing changes. I will see her in the office in one week. I have given her a note to be out of work for the next two weeks. Patient Disposition: HOME HEALTH SERVICE Condition: Stable Health Concerns: Post Hospitalization: new medications and changes needed to prevent readmission or further decline. Pt educated and given instructions on all concerns. Care Plan Goals: Heal this wound . Plan of Treatment: Continue with present treatment and follow up plan. Pt is to keep follow up appointment as instructed and take medications as ordered. Assessment: abscess left lateral chest wall Prescription drug monitoring program results: PDMP reviewed and no concerns identified Prescriptions: New sulfamethoxazole-trimethoprim [Bactrim] 400-80 mg tablet 1 tab PO BID Qty: 14 RF: 0 oxycodone-acetaminophen [Percocet] 5-325 mg tablet 1 tab PO Q6H MDD 6 PRNQty: 30 RF: 0 Continued tramadol 50 mg tablet 50 mg PO PRN PRN (Reason: Pain) RF: 0 mycophenolate mofetil 500 mg tablet 500 mg PO DAILY RF: 0 Discontinued ciprofloxacin HCl 500 mg tablet 500 mg PO BID RF: 0 Follow ups/Referrals Follow ups/Referrals: KSENIA BOLANOS [Primary Care Provider] - 3 days Sterling Win [STAFF PHYSICIAN] - 09/17/21 1:30 pm Instructions Instructions: Skin Abscess, Hand Washing, [id number], Infection Prevention in the Home Stand Alone Forms: Excuse From Work or School, Precautions for COVID19, [facility], Patient Portal, Social Distancing
[2021-09-08 12:16] VITALS: BP 122/67
== END 2021-09-08 15:10 | disposition home health service (06) ==
LOC: MED/SURG 13:05 → ER 13:05 → MED/SURG 19:45
PROVIDERS: ADMIT Surgery; ATTEND Surgery
DX: S20.219A Contusion of unspecified front wall of thorax, initial encounter; Z20.822 Contact with and (suspected) exposure to COVID-19; S30.1XXA Contusion of abdominal wall, initial encounter; L02.213 Cutaneous abscess of chest wall; I25.10 Atherosclerotic heart disease of native coronary artery without angina pectoris; B95.62 Methicillin resistant Staphylococcus aureus infection as the cause of diseases classified elsewhere; X58.XXXA Exposure to other specified factors, initial encounter; I10 Essential (primary) hypertension; R10.12 Left upper quadrant pain